=== PATIENT | male | born 1995 | race Caucasian/White ===

== ENCOUNTER 2020-12-18 11:54 | Emergency (ER) | payer OTHER ==
--- NOTE | 2020-12-18 12:07 | ERPHSYRPT ---
- History of Present Illness Time Seen by Provider: 12/18/20 12:06 Historian: patient Exam Limitations: no limitations Patient Subjective Stated Complaint: chest pain Triage Nursing Assessment: pt to ED c/o CP x 2 days in L upper chest that does not radaite. rates 2/10 discomfort dull pain. no alleviating or aggrevating factors noted. heart sounds clear, lunds clear and equal bilaterally. pt denies feeling anxious at this time and no hx. denies cardiac hx. states this pain has been intermittent for last 2 days at random Physician History: This is a 25-year-old white male who has a history of hypothyroidism and is on thyroid supplementation and presents with 2-day history of intermittent, random occurring left upper anterior chest pain described as a dull ache or pressure that measures 2 out of 10 on a pain scale. He denies radiation of pain. He has no cardiac history. He is not short of breath. He has not had the symptoms in the past. Increase in activity or stress have not brought the pain on or incr ease the pain that is present. Patient denies fever. He denies cough. He denies nausea vomiting and denies diarrhea. He has no abdominal pain. Timing/Duration: day(s) (2) Activities at Onset: none Quality: aching, pressure Location: other (Left anterior chest pain) Chest Pain Radiation: no radiation Severity of Pain-Max: mild Severity of Pain-Current: mild Modifying Factors: Improves With: movement Associated Symptoms: denies symptoms, No nausea, No vomiting, No heartburn, No abdominal pain, No cough, No hurts to breathe, No diaphoresis Prior Chest Pain/Cardiac Workup: no prior chest pain, no prior cardiac workup Nitro Today/Relief: no nitro taken today Aspirin Treatment Today: no aspirin today Allergies/Adverse Reactions: No Known Drug Allergies Allergy (Unverified 12/18/20 12:03) Home Medications: Levothyroxine Sodium [Synthroid] 175 mcg PO DAILY 12/18/20 [History] Liothyronine Sodium 5 mcg PO DAILY 12/18/20 [History] Hx Tetanus, Diphtheria Vaccination/Date Given: Yes Hx Influenza Vaccination/Date Given: Yes Hx Pneumococcal Vaccination/Date Given: No Immunizations Up to Date: Yes Travel Risk - International Travel Have you traveled outside of the country in past 3 weeks: No - Coronavirus Screening Are you exhibiting any of the following symptoms?: No Close contact with a COVID-19 positive Pt in past 14-21 Days: No - Review of Systems Constitutional: No Symptoms Eyes: No Symptoms Ears, Nose, & Throat: No Symptoms Respiratory: No Symptoms Cardiac: Chest Pain Abdominal/Gastrointestinal: No Symptoms Genitourinary Symptoms: No Symptoms Musculoskeletal: No Symptoms Skin: No Symptoms Neurological: No Symptoms Psychological: No Symptoms Endocrine: No Symptoms Hematologic/Lymphatic: No Symptoms Immunological/Allergic: No Symptoms All Other Systems: Reviewed and Negative - Past Medical History Pertinent Past Medical History: Yes Neurological History: No Pertinent History ENT History: No Pertinent History Cardiac History: No Pertinent History Respiratory History: No Pertinent History Endocrine Medical History: Hypothyroidism GI Medical History: No Pertinent History History: No Pertinent History Psycho-Social History: No Pertinent History Male Reproductive Disorders: No Pertinent History Other Medical History: seasonal allergies, freq ear infections. - Past Surgical History Past Surgical History: Yes Neuro Surgical History: No Pertinent History Cardiac: No Pertinent History Respiratory: No Pertinent History Gastrointestinal: No Pertinent History Genitourinary: No Pertinent History Musculoskeletal: No Pertinent History Male Surgical History: No Pertinent History - Social History Smoking Status: Never smoker Exposure to second hand smoke: No Drug Use: none Patient Lives Alone: No (roommate) - Nursing Vital Signs Nursing Vital Signs: Initial Vital Signs Pulse Rate 89 12/18/20 11:55 Respiratory Rate 12 12/18/20 11:55 Blood Pressure 122/78 12/18/20 11:55 O2 Sat by Pulse Oximetry 96 12/18/20 11:55 Pain Scale Pain Intensity 2 - Physical Exam General Appearance: no apparent distress, alert, anxiety Eye Exam: PERRL/EOMI, eyes nml inspection Ears, Nose, Throat Exam: normal ENT inspection, moist mucous membranes Neck Exam: normal inspection, non-tender, supple, full range of motion Respiratory Exam: normal breath sounds, chest tenderness, lungs clear, airway intact, No respiratory distress Cardiovascular Exam: regular rate/rhythm, normal heart sounds, normal peripheral pulses Gastrointestinal/Abdomen Exam: soft, normal bowel sounds, No tenderness Rectal Exam: not done Back Exam: normal inspection, normal range of motion, No CVA tenderness, No vertebral tenderness Extremity Exam: normal inspection, normal range of motion, pelvis stable Neurologic Exam: alert, oriented x 3, cooperative, supervisor show operations II-XII nml as tested, normal mood/affect, nml cerebellar function, nml station & gait, sensation nml Skin Exam: normal color, warm, dry Lymphatic Exam: No adenopathy SpO2 Interpretation: normal O2 Delivery: Room Air - Course Nursing assessment & vital signs reviewed: Yes EKG Interpreted by Me: RATE (84), Sinus Rhythm, NORMAL AXIS, NORMAL INTERVALS, NORMAL QRS, NORMAL ST-T, Other (No acute ischemic changes. There is no comparison EKG.) Ordered Tests: Active Orders 24 hr Category Date Time Status EKG-ER Only STAT Care 12/18/20 12:24 Active IV Insertion STAT Care 12/18/20 12:24 Active Pulse Oximetry (ED) STAT Care 12/18/20 12:24 Active CHEST 1 VIEW (PORTABLE) Stat Exams 12/18/20 12:24 Completed CBC W DIFF Stat Lab 12/18/20 12:30 Completed CMP Stat Lab 12/18/20 12:30 Completed D-DIMER QUANTITATIVE Stat Lab 12/18/20 12:30 Completed NT PRO BNP Stat Lab 12/18/20 12:30 Completed T4 (Thyroxine) Stat Lab 12/18/20 12:30 Completed TROPONIN Q3H Lab 12/18/20 12:30 Completed TROPONIN Q3H Lab 12/18/20 15:30 Ordered TROPONIN Q3H Lab 12/18/20 18:30 Ordered TROPONIN Q3H Lab 12/18/20 21:30 Ordered TROPONIN Q3H Lab 12/19/20 00:30 Ordered TSH [TSH, 3RD Generation] Stat Lab 12/18/20 12:30 Completed Medication Summary Discontinued Medications Generic Name Dose Route Start Last Admin Trade Name Freq PRN Reason Stop Dose Admin Aspirin 324 mg 12/18/20 12:24 12/18/20 12:35 Baby Aspirin 81 Mg Chew PO 12/18/20 12:25 324 mg STAT ONE Administration Aspirin Confirm 12/18/20 12:32 Baby Aspirin 81 Mg Chew Administered 12/18/20 12:33 Dose 324 mg .ROUTE .[facility] Lab/Rad Data: Laboratory Result Diagrams 12/18/20 12:30 12/18/20 12:30 Laboratory Results 12/18/20 12/18/20 12/18/20 Range/Units 12:30 12:30 12:30 WBC (4.0-10.5) K/mm3 RBC (4.1-5.6) M/mm3 Hgb (12.5-18.0) gm/dl Hct (42-50) % MCV (78-100) fl MCH (26-32) pg MCHC (32-36) g/dl RDW (11.5-14.0) % Plt Count (150-450) K/mm3 MPV (7.5-11.0) fl Gran % (36.0-66.0) % Eos # (Auto) (0-0.5) Absolute Lymphs (auto) (1.0-4.6) Absolute Monos (auto) (0.0-1.3) Lymphocytes % (24.0-44.0) % Monocytes % (0.0-12.0) % Eosinophils % (0.00-5.0) % Basophils % (0.0-0.4) % Absolute Granulocytes (1.4-6.9) Basophils # (0-0.4) D-Dimer < 215 L (215-500) ng/mL Sodium (137-145) mmol/L Potassium (3.5-5.1) mmol/L Chloride (98-107) mmol/L Carbon Dioxide (22-30) mmol/L Anion Gap (5-15) MEQ/L BUN (9-20) mg/dL Creatinine (0.66-1.25) mg/dL Estimated GFR ML/MIN Glucose (74-106) mg/dL Calcium (8.4-10.2) mg/dL Total Bilirubin (0.2-1.3) mg/dL AST (17-59) U/L ALT (0-50) U/L Alkaline Phosphatase (38-126) U/L Troponin I < 0.012 (0.000-0.034) ng/mL NT-Pro-B Natriuret Pep (0-450) pg/mL Serum Total Protein (6.3-8.2) g/dL Albumin (3.5-5.0) g/dL Thyroxine (T4) 10.3 (5.53-10.96) ug/dL TSH 3rd Generation 1.420 (0.47-4.68) mIU/L 12/18/20 12/18/20 Range/Units 12:30 12:30 WBC 5.3 (4.0-10.5) K/mm3 RBC 5.27 (4.1-5.6) M/mm3 Hgb 14.8 (12.5-18.0) gm/dl Hct 44.2 (42-50) % MCV 83.9 (78-100) fl MCH 28.1 (26-32) pg MCHC 33.5 (32-36) g/dl RDW 12.6 (11.5-14.0) % Plt Count 253 (150-450) K/mm3 MPV 10.2 (7.5-11.0) fl Gran % 52.5 (36.0-66.0) % Eos # (Auto) 0.13 (0-0.5) Absolute Lymphs (auto) 1.75 (1.0-4.6) Absolute Monos (auto) 0.58 (0.0-1.3) Lymphocytes % 33.2 (24.0-44.0) % Monocytes % 11.0 (0.0-12.0) % Eosinophils % 2.5 (0.00-5.0) % Basophils % 0.8 (0.0-0.4) % Absolute Granulocytes 2.77 (1.4-6.9) Basophils # 0.04 (0-0.4) D-Dimer (215-500) ng/mL Sodium 138 (137-145) mmol/L Potassium 4.2 (3.5-5.1) mmol/L Chloride 104 (98-107) mmol/L Carbon Dioxide 25 (22-30) mmol/L Anion Gap 13.3 (5-15) MEQ/L BUN 14 (9-20) mg/dL Creatinine 0.90 (0.66-1.25) mg/dL Estimated GFR > 60.0 ML/MIN Glucose 96 (74-106) mg/dL Calcium 9.7 (8.4-10.2) mg/dL Total Bilirubin 0.60 (0.2-1.3) mg/dL AST 36 (17-59) U/L ALT 54 H (0-50) U/L Alkaline Phosphatase 68 (38-126) U/L Troponin I (0.000-0.034) ng/mL NT-Pro-B Natriuret Pep 19.4 (0-450) pg/mL Serum Total Protein 7.8 (6.3-8.2) g/dL Albumin 4.6 (3.5-5.0) g/dL Thyroxine (T4) (5.53-10.96) ug/dL TSH 3rd Generation (0.47-4.68) mIU/L - Progress Progress: improved, re-examined Air Movement: good Progress Note: 12/18/20 13:51 Chest x-ray shows no acute cardiopulmonary process. Patient has no significant chest pain. Blood Culture(s) Obtained: No Antibiotics given: No Counseled pt/family regarding: lab results, diagnosis, need for follow-up, rad results - Departure Departure Disposition: Home Clinical Impression: Non-cardiac chest pain Condition: Stable Critical Care Time: No Referrals: SAIRA DUEÑAS MD [Primary Care Provider] - Additional Instructions: Take your medications as prescribed. Follow-up with your primary care physician for further management
[2020-12-18] MEDS ORDERED: BABY ASPIRIN 81 MG CHEW PO ONE (12:24)
[2020-12-18] MEDS ORDERED: BABY ASPIRIN 81 MG CHEW ONE (12:32)
[2020-12-18 12:36] LABS: Absolute Neutrophil Ct (ANC) 2.77 (1.4-6.9); BASOPHIL % 0.8 % (0.0-0.4); Basophil (Absolute #) 0.04 (0-0.4); Eosinophil % 2.5 % (0.00-5.0); Eosinophil (Absolute #) 0.13 (0-0.5); Hematocrit 44.2 % (42-50); Hemoglobin 14.8 gm/dl (12.5-18.0); Lymphocyte (Absolute #) 1.75 (1.0-4.6); Lymphocytes % 33.2 % (24.0-44.0); Mean Cell Volume 83.9 fl (78-100); Mean Corpuscular Hemoglobin 28.1 pg (26-32); Mean Corpuscular Hgb Concent. 33.5 g/dl (32-36); Mean Platelet Volume 10.2 fl (7.5-11.0); Monocyte (Absolute #) 0.58 (0.0-1.3); Neutrophil % 52.5 % (36.0-66.0); Platelet Count 253 K/mm3 (150-450); Red Blood Count 5.27 M/mm3 (4.1-5.6); Red Cell Distribution Width 12.6 % (11.5-14.0); White Blood Count 5.3 K/mm3 (4.0-10.5)
--- NOTE | 2020-12-18 12:49 | XRAY ---
Indication: Chest pain. Comparison: None Portable chest demonstrates normal heart, lungs, and bony thorax.
[2020-12-18 13:17] LABS: ALBUMIN 4.6 g/dL (3.5-5.0); ALKALINE PHOSPHATASE 68 U/L (38-126); ANION GAP 13.3 MEQ/L (5-15); BLOOD UREA NITROGEN 14 mg/dL (9-20); CHLORIDE 104 mmol/L (98-107); Calcium 9.7 mg/dL (8.4-10.2); Carbon Dioxide 25 mmol/L (22-30); EST GLOMERULAR FILTRATION RATE > 60.0 ML/MIN; Glucose 96 mg/dL (74-106); NT PRO BNP 19.4 pg/mL (0-450); Potassium 4.2 mmol/L (3.5-5.1); SGOT/AST 36 U/L (17-59); SGPT/ALT 54 U/L (0-50); SODIUM 138 mmol/L (137-145); Total Protein 7.8 g/dL (6.3-8.2)
[2020-12-18 13:38] LABS: T4 (Thyroxine) 10.3 ug/dL (5.53-10.96); TSH, 3RD Generation 1.42 mIU/L (0.47-4.68)
[2020-12-18 14:15] VITALS: BP 128/85; PULSE 72; O2SAT 98
== END 2020-12-18 14:13 | disposition home or self-care (01) ==
LOC: ED 11:54
DX: R07.89 Other chest pain (principal); E03.9 Hypothyroidism, unspecified; Z79.899 Other long term (current) drug therapy
CPT/HCPCS: 36000; 36415; 71045; 80053; 83880; 84436; 84443; 84484; 85025; 85379; 93005; 94760; 99284; A9270-GY